=== PATIENT | male | born 1955 | race Caucasian/White ===

== ENCOUNTER 2016-12-03 21:27 | Emergency (ER) | payer SELFPAY ==
[~2016-12-03] VITALS: Ht 180.3 cm; Wt 59.9 kg
[~2016-12-03 21:27] MED LIST: ACHD5005 PO; DCS100C PO; HYDR-34 PO; HYDR-3583 PO; HYDR1CAP2 PO; HYDROCODONE PO; IBUP-30 PO; MUPI1OIN5 NS; NAPR-243 PO; SULF1TAB23 PO; SULF1TAB38 PO
[2016-12-03] MEDS ORDERED: KETOROLAC 60 MG/2 ML VIAL IM ONE (23:30)
[2016-12-03] MEDS ORDERED: predniSONE 20 MG TAB PO ONE (23:30)
[2016-12-03] MEDS ORDERED: PRD10T PO (23:32)
--- NOTE | 2016-12-03 23:32 | ED General ---
General Chief Complaint: General Problems/Pain Stated Complaint: SWELLING/PAIN IN RT LEG Nursing Triage Note: Patient reports lower back pain with pain radiating down R leg x 4-5 days, patient reports R leg started to swell yesterday Nursing Sepsis Screen: No Definite Risk Source of Information: Patient Exam Limitations: No Limitations History of Present Illness Time Seen by Provider: 21:35 Initial Comments This patient is brought to the emergency room by his ex- with complaints of pain and swelling from the right buttock down to the foot for the past 4-5 days. He denies any known injury. The pain is significant enough that he is walking with a limp. He also has a small contusion on the right buttock but he cannot recall how this happened. 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 Patient has no history of DVT. He is a smoker but has had no recent procedures or long travels. Patient states the right leg is swollen but no significant swelling is noted by this provider. Allergies and Home Medications Allergies Coded Allergies: No Known Drug Allergies (Verified , 08/03/08) Home Medications Prednisone 10 Mg Tab, 10 MG PO DAILY, #4 Prescribed by: VICKI ACUNA on 12/03/16 1439 Constitutional: no symptoms reported EENTM: no symptoms reported Respiratory: no symptoms reported Cardiovascular: no symptoms reported Gastrointestinal: no symptoms reported Genitourinary: no symptoms reported Musculoskeletal: see HPI Skin: see HPI Psychiatric/Neurological: No Symptoms Reported Hematologic/Lymphatic: No Symptoms Reported Past Hffhpfg-Zlpgxi-Cqdrum Hx Patient Social History Alcohol Use: Denies Use Recreational Drug Use: No Smoking Status: Current Everyday Smoker Type Used: Cigarettes Recent Foreign Travel: No Contact w/Someone Who Travel: No Recent Infectious Disease Expo: No Recent Hopitalizations: No Immunizations Up To Date Tetanus Booster (TDap): Unknown PED Vaccines UTD: No Surgeries HX Surgeries: Yes (hernia repairx4, finger surgery) Respiratory Hx Respiratory Disorders: Yes (tobaccoism) Cardiovascular Hx Cardiac Disorders: No Neurological Hx Neurological Disorders: No Reproductive System Hx Reproductive Disorders: No Sexually Transmitted Disease: No HIV/AIDS: No Genitourinary Hx Genitourinary Disorders: No Gastrointestinal Hx Gastrointestinal Disorders: Yes (HERNIA PROBLEMS. 4 SURGERIES ON HERNIA) Musculoskeletal Hx Musculoskeletal Disorders: No Endocrine Hx Endocrine Disorders: No HEENT HX ENT Disorders: Yes Loss of Vision: Left Hearing Impairment: Denies Cancer Hx Cancer: No Psychosocial Hx Psychiatric Problems: No Integumentary HX Skin/Integumentary Disorder: No Blood Transfusions Hx Blood Disorders: No Adverse Reaction to a Blood Tr: No Family Medical History Family Medial History: Cancer 03 MOTHER Family history: Breast disease 03 MOTHER Myocardial infarction 03 FATHER Physical Exam Vital Signs Vital Sign - Last 12Hours 12/03/16 21:33 Temp 98.3 Pulse 73 Resp 18 B/P (MAP) 133/100 Pulse Ox 94 Capillary Refill : Less Than 3 Seconds General Appearance: WD/WN, Mild Distress, Thin HEENT: PERRL/EOMI, Normal ENT Inspection Respiratory: Normal Breath Sounds, No Respiratory Distress Back: Normal Inspection Extremity: No Pedal Edema, Other (mild tenderness in the musculature throughout the right lower extremity. Pain with external rotation of the right hip. Tenderness over the contusion on the right buttock and over the sacrum.) Neurologic/Psychiatric: Alert, Oriented x3, No Motor/Sensory Deficits, Normal Mood/Affect, court recorder II-XII Norm as Tested Skin: Normal Color, Ecchymosis Progress/Results/Core Measures Results/Orders Lab Results Laboratory Tests Test 12/03/16 22:24 Range/Units D-Dimer 0.27 0.00-0.49 UG/ML My Orders Orders - VICKI RÍOS MD Fibrin Degradation Products (12/03/16 21:42) Ct Pelvis Wo (12/03/16 21:42) Femur, Right, 2 Views (12/03/16 23:03) Tibia/Fibula, Right, 2 Views (12/03/16 23:03) Ketorolac Injection (Toradol Injection) (12/03/16 23:30) Prednisone Tablet (Deltasone Tablet) (12/03/16 23:30) Medications Given in ED Current Medications Medications Dose Ordered Sig/Iliana Route Start Time Stop Time Status Last Admin Dose Admin Ketorolac Tromethamine 60 mg ONCE ONCE IM 12/03/16 23:30 12/03/16 23:31 DC 12/03/16 23:34 60 MG Prednisone 20 mg ONCE ONCE PO 12/03/16 23:30 12/03/16 23:31 DC 12/03/16 23:34 20 MG Vital Signs/I&O Vital Sign - Last 12Hours 12/03/16 12/03/16 21:33 23:49 Temp 98.3 98.3 Pulse 73 73 Resp 18 18 B/P (MAP) 133/100 Pulse Ox 94 94 Blood Pressure Mean: 111 Progress Note : Progress Note CT of the pelvis showed no evidence of acute injury. X-rays of the right femur and tib-fib followed. No evidence of injury was identified there either. D- dimer was negative, effectively ruling out DVT. I suspect patient had some type of injury he forgot about resulting in the contusion on the right buttock. He may also have some degree of radiculopathy based on the lumbar spine findings on CT. Patient's pain was treated with Toradol injection and prednisone. Diagnostic Imaging Diagonstic Imaging: CT Plain Films/CT/US/NM/MRI: other Comments CT of the pelvis viewed by me and Stat Rad report reviewed. Neuroforaminal stenosis and spondylolisthesis was noted with no acute injury to the pelvis identified. Diagonstic Imaging: Xray Plain Films/CT/US/NM/MRI: femur (and tib-fib) Comments X-rays of the right femur and tib-fib viewed by me. Report not yet available. No acute injuries identified. Departure Impression Impression: Primary Impression: Right leg pain Additional Impressions: Contusion, buttock Qualified Codes: S30.0XXA - Contusion of lower back and pelvis, initial encounter Neuroforaminal stenosis of lumbar spine Spondylolisthesis at L5-S1 level Disposition: 01 HOME, SELF-CARE Condition: Improved Departure-Patient Inst. Decision time for Depature: 23:20 Referrals: NO,LOCAL PHYSICIAN (PCP/Family) Primary Care Physician Patient Instructions: Contusion (DC) Add. Discharge Instructions: You may use ibuprofen up to 600 mg every 6 hours as needed for pain. Add Tylenol (acetaminophen) disease up to 1000 mg every 6 hours as needed for additional pain relief. Follow-up with your primary care provider within the next week. Return to care if symptoms worsen. Complete the prednisone as prescribed to help with inflammation. Avoid strenuous activity until pain improves. \All discharge instructions reviewed with patient and/or family. Voiced understanding. Scripts Prednisone (Prednisone) 10 Mg Tab 10 MG PO DAILY, #4 TAB Prov: VICKI RÍOS MD 12/03/16 VICKI RÍOS MD Dec 03, 2016 23:32
[2016-12-03 23:49] VITALS: BP 128/84
--- NOTE | 2016-12-04 07:08 | Diagnostic Imaging Report ---
PROCEDURE: CT pelvis without contrast. TECHNIQUE: Multiple contiguous axial images were obtained through the pelvis without the use of intravenous contrast. Sagittal and coronal reformations were performed. INDICATION: Pain over right sacrum, buttocks, contusion on skin. No reported injury. Pain with rotation. COMPARISON STUDIES: CT abdomen and pelvis from 06/26/14. FINDINGS: On the most superior slice, there is a small calculi in the right kidney. Arteriosclerosis is present. Bilateral pars defects are present at L5 with grade 1 anterolisthesis of L5-S1. Moderate to severe foraminal stenosis present at this level. No free fluid is present. Urinary bladder appears normal. Postoperative changes consistent with inguinal hernia repair present. In the gluteal region there is a small area of increased density in subcutaneous fat consistent with some bruising. IMPRESSION: 1. There is some bruising in the subcutaneous fat in the gluteal region. 2. No evidence of a fracture 3. Bilateral spondylolysis of L5 with anterolisthesis of L5 on S1 and foraminal stenosis. 3. Right renal lithiasis. Findings agree with the [facility] report. Dictated by: Dictated on workstation # [id number]
--- NOTE | 2016-12-04 07:24 | Diagnostic Imaging Report ---
INDICATION: Swelling in the right lower leg for 4=5 days. COMPARISON STUDIES: None FINDINGS: Frontal and lateral views of the right tibia and fibula demonstrate normal ossification. No fracture, dislocation or foreign body is present. IMPRESSION: Negative right tibia and fibula. Dictated by: Dictated on workstation # [id number]
--- NOTE | 2016-12-04 07:25 | Diagnostic Imaging Report ---
INDICATION: Swelling in lower legs for 4-5 days. COMPARISON STUDY: None FINDINGS: Two views of the right femur demonstrate no evidence of a fracture or dislocation. Mesh is seen within the right lower abdomen. IMPRESSION: Negative right femur. Dictated by: Dictated on workstation # [id number]
--- OUTSIDE RECORDS SUMMARY | 2016-12-07 14:30 | XMS REPORT | Continuity of Care Document ---
Author Author [facility] Address Unknown Phone Unavailable Allergies Active Description Code Type Severity Reaction Onset Reported/Identified Relationship to Patient Clinical Status Yes No Known Drug Allergies [id number] Drug Allergy Unknown N/ A 08/03/2008 Medications Problems Date Dx Coded Attending Type Code Diagnosis Diagnosed By 08/31/2010 Ot 550.92 08/31/2010 Ot 789.09 09/09/2010 Ot 214.4 09/09/2010 Ot 550.92 09/04/2011 Ot 550.90 UNILAT INGUINAL HERNIA 12/09/2011 Ot 305.1 TOBACCO USE DISORDER 12/09/2011 Ot 686.9 LOCAL SKIN INFECTION NOS 09/20/2012 Ot 789.04 ABDOMINAL PAIN, LEFT LOWER QUADRANT 11/18/2012 789.09 ABDOMINAL PAIN OTHER SPECIFIED SITE 11/18/2012 PATRICIA LAIRD DO 789.09 ABDOMINAL PAIN OTHER SPECIFIED SITE 11/18/2012 JORDYHOLDEN HAIR APRNNDA S 789.09 ABDOMINAL PAIN OTHER SPECIFIED SITE 11/18/2012 HENRY COVARRUBIAS MD 789.09 ABDOMINAL PAIN OTHER SPECIFIED SITE 11/18/2012 KIM SAMUEL MD 789.09 ABDOMINAL PAIN OTHER SPECIFIED SITE 11/18/2012 HOLDEN SPENCE APRNNDA S 789.09 ABDOMINAL PAIN OTHER SPECIFIED SITE 11/18/2012 HOLDEN SPENCE APRNNDA S 789.09 ABDOMINAL PAIN OTHER SPECIFIED SITE 11/18/2012 PATRICIA LAIRD DO K 789.09 ABDOMINAL PAIN OTHER SPECIFIED SITE 11/18/2012 SHARI SARMIENTO APRN 789.09 ABDOMINAL PAIN OTHER SPECIFIED SITE 11/18/2012 HOLDEN SPENCE APRNNDA S 789.09 ABDOMINAL PAIN OTHER SPECIFIED SITE 07/20/2013 LANE HAGER MD Ot 305.1 TOBACCO USE DISORDER 07/20/2013 LANE HAGER MD Ot 530.11 REFLUX ESOPHAGITIS 07/20/2013 LANE HAGER MD Ot 531.90 STOMACH ULCER NOS 07/20/2013 ALLEY PLASCENCIA, LANE Melendez Ot 535.50 UNSP GASTRITIS GASTRODUODENITIS W/O ME 07/20/2013 AL[address] PLASCENCIA, L[address] Melendez Ot 789.09 ABDOMINAL PAIN, OTHER SPECIFIED SITE 07/20/2013 AL[address] PL[address]IA, L[address] Melendez Ot V15.81 HX OF PAST NONCOMPLIANCE 07/25/2013 ELAINE SPENCE APRN S 535.50 GASTRITIS UNSPEC 07/25/2013 ELAINE SPENCE APRN S 789.04 ABDOMINAL PAIN LEFT LOWER QUADRANT 07/25/2013 ELAINE SPENCE APRN S V70.0 EXAM - ROUTINE H&P 07/25/2013 HENRY COVARRUBIAS MD 535.50 GASTRITIS UNSPEC 07/25/2013 HENRY COVARRUBIAS MD 789.04 ABDOMINAL PAIN LEFT LOWER QUADRANT 07/25/2013 HENRY COVARRUBIAS MD V70.0 EXAM - ROUTINE H&P 07/25/2013 KIM SAMUEL MD 535.50 GASTRITIS UNSPEC 07/25/2013 KIM SAMUEL MD 789.04 ABDOMINAL PAIN LEFT LOWER QUADRANT 07/25/2013 KIM SAMUEL MD V70.0 EXAM - ROUTINE H&P 07/25/2013 ELAINE SPENCE APRN S 535.50 GASTRITIS UNSPEC 07/25/2013 ELAINE SPENCE APRN S 789.04 ABDOMINAL PAIN LEFT LOWER QUADRANT 07/25/2013 ELAINE SPENCE APRN S V70.0 EXAM - ROUTINE H&P 07/25/2013 ELAINE SEPNCE APRN S 535.50 GASTRITIS UNSPEC 07/25/2013 ELAINE SPENCE APRN S 789.04 ABDOMINAL PAIN LEFT LOWER QUADRANT 07/25/2013 ELAINE SPENCE APRN S V70.0 EXAM - ROUTINE H&P 07/25/2013 PATRICIA LAIRD DO 535.50 GASTRITIS UNSPEC 07/25/2013 PATRICIA LAIRD DO 789.04 ABDOMINAL PAIN LEFT LOWER QUADRANT 07/25/2013 PATRICIA LAIRD DO V70.0 EXAM - ROUTINE H&P 07/25/2013 SHARI SARMIENTO APRN 535.50 GASTRITIS UNSPEC 07/25/2013 SHARI SARMIENTO APRN 789.04 ABDOMINAL PAIN LEFT LOWER QUADRANT 07/25/2013 SHARI SARMIENTO APRN V70.0 EXAM - ROUTINE H&P 07/25/2013 ELAINE SPENCE APRN 535.50 GASTRITIS UNSPEC 07/25/2013 ELAINE SPENCE APRN S 789.04 ABDOMINAL PAIN LEFT LOWER QUADRANT 07/25/2013 ELAINE SPENCE APRN V70.0 EXAM - ROUTINE H&P 11/27/2013 ELAINE SPENCE APRN S 719.42 PAIN- ELBOW 11/27/2013 ELAINE SPENCE APRN S 719.46 PAIN KNEE 11/27/2013 LAIRD DO, PATRICIA K 719.42 PAIN- ELBOW 11/27/2013 LAIRD DO, PATRICIA K 719.46 PAIN KNEE 11/27/2013 SHARI SARMIENTO APRN 719.42 PAIN- ELBOW 11/27/2013 SHARI SARMIENTO APRN 719.46 PAIN KNEE 11/27/2013 ELAINE SPENCE APRN S 719.42 PAIN- ELBOW 11/27/2013 ELAINE SPENCE APRN S 719.46 PAIN KNEE 06/21/2014 Ot 550.90 06/21/2014 Ot V72.63 06/21/2014 Ot 789.09 06/21/2014 Ot V72.63 06/21/2014 Ot V74.8 06/25/2014 Ot 550.90 06/25/2014 Ot V72.63 06/25/2014 Ot 789.09 06/25/2014 Ot V72.63 06/25/2014 Ot V74.8 12/03/2016 Ot 789.09 ABDOMINAL PAIN, OTHER SPECIFIED SITE 12/03/2016 Ot V72.63 PRE-PROCEDURAL LABORATORY EXAMINATION 12/03/2016 Ot V74.8 SCREEN-BACTERIAL DIS NEC 12/03/2016 ELAINE SPENCE Ot 789.04 ABDOMINAL PAIN, LEFT LOWER QUADRANT 12/03/2016 ELAINE SPENCE Ot V45.89 POSTSURGICAL STATES NEC Procedures Code Description Performed By Performed On 86.04 OTHER SKIN SUBQ I D 12/07/2011 86.59 CLOSURE SKIN SUBCUTANEOUS NEC 12/09/2011 Marty Farris 11/23/2012 63437 ROUTINE VENIPUNCTURE 11/27/2013 27408 XRAY KNEE LEFT 3 VIEWS 11/27/2013 05767 CBC 11/28/2013 56268 URIC ACID 2013 JOINT INJECTION- LARGE JOINT (SPECIFY MEDCIN DESCRIPTION) 12/21/2013 JOINT INJECTION- LARGE JOINT (SPECIFY MEDCIN DESCRIPTION) 03/22/2014 J1040 DEPO MEDROL 80 MG INJ 03/22/2014 Results Test Result Range Fibrin D-dimer FEU measurement in platelet poor plasma (mass/volume) - 22:24 Fibrin D-dimer FEU measurement in platelet poor plasma (mass/volume) 0.27 ug/mL 0.00-0.49 Encounters ACCT No. Visit Date/Time Discharge Status Pt. Type Provider Facility Loc./Unit Complaint [id number] 06/13/2014 10:30:00 06/13/2014 23: 59:59 CLS Outpatient ELAINE SPENCE APRN [id number] 03/22/2014 13:01:00 03/22/2014 23: 59:59 CLS Outpatient SHARI SARMIENTO APRN [id number] 12/21/2013 12:24:00 12/21/2013 23: 59:59 CLS Outpatient PATRICIA LAIRD DO [id number] 11/27/2013 15:34:00 11/27/2013 23: 59:59 CLS Outpatient ELAINE SPENCE APRN [id number] 09/25/2013 14:53:00 09/25/2013 23: 59:59 CLS Outpatient KIM SAMUEL MD [id number] 09/18/2013 00:00:00 09/18/2013 23: 59:59 CLS Outpatient ELAINE SPENCE APRN [id number] 08/16/2013 15:30:00 08/16/2013 23: 59:59 CLS Outpatient HENRY COVARRUBIAS MD [id number] 07/25/2013 14:27:00 07/25/2013 23: 59:59 CLS Outpatient ELAINE SPENCE APRN [id number] 11/21/2012 14:54:00 11/21/2012 23: 59:59 CLS Outpatient PATRICIA LAIRD DO [id number] 11/18/2012 10:57:00 Document Registration
== END 2016-12-03 23:49 | disposition home or self-care (01) ==
LOC: EDUNIT# 21:27 → ER 21:29
DX: S30.0XXA Contusion of lower back and pelvis, initial encounter (principal); M48.06 Spinal stenosis, lumbar region; M43.17 Spondylolisthesis, lumbosacral region; M79.604 Pain in right leg; F17.210 Nicotine dependence, cigarettes, uncomplicated; X58.XXXA Exposure to other specified factors, initial encounter
CPT/HCPCS: 36415; 72192; 73552; 73590; 85379; 96372; 99283

== ENCOUNTER 2018-04-10 20:00 | Emergency (ER) | payer SELFPAY ==
[~2018-04-10] VITALS: Ht 175.3 cm; Wt 61.2 kg
[~2018-04-10 20:00] MED LIST changes: +PRD10T PO
[2018-04-10] MEDS ORDERED: CHLO473M MM (20:25)
--- NOTE | 2018-04-10 20:25 | ED EENT ---
History of Present Illness General Stated Complaint: SORE IN MOUTH Source: patient Exam Limitations: no limitations History of Present Illness Date Seen by Provider: Apr 10, 2018 Time Seen by Provider: 20:22 Initial Comments To ER with reports of a sore in his mouth. This began Wednesday while he was eating. He is edentulous. He states that his mouth "split open" and that he " put it back together with his tongue". Refers to a "zipper" in his mouth. Timing/Duration: abrupt Severity: moderate Location: mouth Associated Symptoms: denies symptoms Allergies and Home Medications Allergies Coded Allergies: No Known Drug Allergies (Verified , 08/03/08) Home Medications Chlorhexidine Gluconate 473 Ml Mouthwash, 30 ML MM BID Prescribed by: OLIVIA GORDON on 04/10/182024 Prednisone 10 Mg Tab, 10 MG PO DAILY Prescribed by: VICKI ACUNA on 12/03/16 3332 Patient Home Medication List Home Medication List Reviewed: Yes Review of Systems Review of Systems Constitutional: see HPI Eyes: No Symptoms Reported Ears: No Symptoms Reported Nose: no symptoms reported Mouth: see HPI (he is edentulous, there is an area of slight erythema maceration to the gingiva overlying where tooth #9 and 10 used to reside.) Musculoskeletal: no symptoms reported Skin: no symptoms reported Neurological: No Symptoms Reported, See HPI Hematologic/Lymphatic: No Symptoms Reported Immunological/Allergic: no symptoms reported Past Amjgrld-Mknmuq-Nkodam Hx Patient Social History Type Used: Cigarettes Recent Foreign Travel: No Contact w/Someone Who Travel: No Recent Hopitalizations: No Immunizations Up To Date Tetanus Booster (TDap): Unknown PED Vaccines UTD: No Past Medical History Surgeries: Yes (hernia repairx4, finger surgery) Respiratory: No Cardiac: No Neurological: No Reproductive Disorders: No Sexually Transmitted Disease: No HIV/AIDS: No Gastrointestinal: Yes (HERNIA PROBLEMS. 4 SURGERIES ON HERNIA) Musculoskeletal: No Endocrine: No Loss of Vision: Left Hearing Impairment: Denies Cancer: No Psychosocial: No Integumentary: No Blood Disorders: No Adverse Reaction/Blood Tranf: No Family Medical History Cancer 03 MOTHER Family history: Breast disease 03 MOTHER Myocardial infarction 03 FATHER Physical Exam Vital Signs Vital Signs - First Documented 04/10/18 20:15 Temp 97.6 Pulse 81 Resp 16 B/P (MAP) 154/110 (125) Pulse Ox 99 O2 Delivery Room Air Height, Weight, BMI Height: 5'11.00" Weight: 132lbs. 2.0oz. 59.482198oh; 18.41 BMI Method:Stated General Appearance: WD/WN, no apparent distress Eyes: bilateral eye normal inspection, bilateral eye PERRL, bilateral eye EOMI Nose: normal inspection Mouth/Throat: No mandibular swelling, No maxillary swelling, No pharynx swelling, No tongue swollen, No tonsillar swelling, No trismus; other (he is edentulous, there is an area of slight erythema maceration to the gingiva overlying where tooth #9 and 10 used to reside.) Neck: non-tender, full range of motion Respiratory: no respiratory distress, no accessory muscle use Gastrointestinal: normal bowel sounds, non tender Neurologic/Psychiatric: alert, normal mood/affect, oriented x 3 Progress/Results/Core Measures Results/Orders My Orders Orders - OLIVIA GORDON APRN Lidocaine 2% Viscous 15 Ml (Xylocaine Vi (04/10/18 20:30) Antacid Suspension (Mylanta Suspension (04/10/18 20:30) Vital Signs/I&O 04/10/18 20:15 Temp 97.6 Pulse 81 Resp 16 B/P (MAP) 154/110 (125) Pulse Ox 99 O2 Delivery Room Air Departure Communication (Admissions) Unclear if the area he "put back with his tongue" was possible sloughed skin from blister? Impression Primary Impression: Stomatitis and mucositis, unspecified Disposition: 01 HOME, SELF-CARE Condition: Stable Departure-Patient Inst. Decision time for Depature: 20:23 Referrals: NO,LOCAL PHYSICIAN (PCP/Family) Primary Care Physician Patient Instructions: Mouth Sores Add. Discharge Instructions: 1. Use the mouthwash as prescribed 2. Apply any topical numbing medication as needed for control of pain. Scripts Chlorhexidine Gluconate (Chlorhexidine Gluconate) 473 Ml Mouthwash 30 ML MM BID, #473 ML Prov: OLIVIA GORDON APRN 04/10/18 Work/School Note: Local [employer]ing OLIVIA GORDON APRN Apr 10, 2018 20:25
[2018-04-10] MEDS ORDERED: LIDOCAINE 2% VISCOUS 15 ML UDC MM ONE (20:30)
[2018-04-10] MEDS ORDERED: ANTACID SUSP 30 ML UDC (MYLANTA) PO ONE (20:30)
[2018-04-10 20:44] VITALS: BP 161/99
== END 2018-04-10 20:40 | disposition home or self-care (01) ==
LOC: EDUNIT# 20:00 → ER 20:01
DX: K12.30 Oral mucositis (ulcerative), unspecified (principal); K12.1 Other forms of stomatitis; Z98.890 Other specified postprocedural states; Z80.3 Family history of malignant neoplasm of breast
CPT/HCPCS: 99283

== ENCOUNTER 2018-06-11 04:45 | Emergency (ER) | payer SELFPAY ==
[~2018-06-11] VITALS: Ht 167.6 cm; Wt 61.2 kg
[~2018-06-11 04:45] MED LIST changes: +CHLO473M MM
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
[2018-06-11] MEDS ORDERED: FLUT9.9S NS (05:14)
[2018-06-11] MEDS ORDERED: SALINE NASAL SPRAY (OCEAN) 45 ML BTL ONE (05:15)
[2018-06-11 05:21] VITALS: BP 134/81
== END 2018-06-11 05:20 | disposition home or self-care (01) ==
LOC: EDUNIT# 04:45 → ER 04:47
DX: M26.623 Arthralgia of bilateral temporomandibular joint (principal); H65.93 Unspecified nonsuppurative otitis media, bilateral; F17.210 Nicotine dependence, cigarettes, uncomplicated; Z79.52 Long term (current) use of systemic steroids; Z98.890 Other specified postprocedural states; Z82.49 Family history of ischemic heart disease and other diseases of the circulatory system
CPT/HCPCS: 99282

== ENCOUNTER 2020-09-29 14:53 | Emergency (ER) | payer SELFPAY ==
[~2020-09-29] VITALS: Ht 177 cm; Wt 61.0 kg
[~2020-09-29 14:53] MED LIST changes: -CHLO473M MM; +FLUT9.9S NS; +NFCHLORHGL MM
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
[2020-09-29] MEDS ORDERED: CEPHALEXIN 250 MG (KEFLEX) CAP PO ONE (15:15)
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
[2020-09-29] MEDS ORDERED: CEPH500T PO (16:16)
[2020-09-29 16:40] VITALS: BP 158/92
== END 2020-09-29 16:43 | disposition home or self-care (01) ==
LOC: EDUNIT# 14:53 → ER 14:54
DX: S61.210A Laceration without foreign body of right index finger without damage to nail, initial encounter (principal); F17.210 Nicotine dependence, cigarettes, uncomplicated; Z79.52 Long term (current) use of systemic steroids; W23.0XXA Caught, crushed, jammed, or pinched between moving objects, initial encounter; Y92.59 Other trade areas as the place of occurrence of the external cause; Y99.0 Civilian activity done for income or pay
CPT/HCPCS: 64450; 73140

== ENCOUNTER 2020-10-01 07:54 | Emergency (ER) | payer SELFPAY ==
[~2020-10-01] VITALS: Ht 180 cm; Wt 135.0 kg
[~2020-10-01 07:54] MED LIST changes: +CEPH500T PO
[2020-10-01 08:00] VITALS: BP 170/104
--- NOTE | 2020-10-01 08:17 | ED Integumentary General ---
General Stated Complaint: L FINGER CHECK History of Present Illness Date Seen by Provider: Oct 01, 2020 Time Seen by Provider: 08:05 Initial Comments Patient is a 64-year-old male who is right-hand dominant who presents by private vehicle this morning with a chief complaint of wound reevaluation. Patient accidentally smashed his left index finger between some bricks 2 days ago. Patient had local wound care with some stitches placed per Dr. Morris. Patient was advised to come back in for a wound check today. He denies having significant pain. He has not remove the bandage since the time it was seen and treated here in the emergency room. He states that he is taking his antibiotics as directed. He has not made follow-up yet with a hand surgeon. No other complaints of illness or injury. All other review of systems reviewed and negative except as stated above. Timing/Duration: other (2 days ago) Severity: mild Possible Cause: other (Crush injury) Associated Symptoms: denies symptoms Allergies and Home Medications Allergies Coded Allergies: No Known Drug Allergies (Verified , 08/03/08) Home Medications Cephalexin 500 Mg Tablet, 500 MG PO QID Prescribed by: HUGO MORRIS on 09/29/20 1616 Fluticasone Propionate 9.9 Ml [place].susp, 1 SPRAY NS DAILY 1 SPRAY EACH NARE DAILY Prescribed by: HUGO MORRIS on 06/11/18 0514 Patient Home Medication List Home Medication List Reviewed: Yes Review of Systems Review of Systems Constitutional: see HPI Respiratory: no symptoms reported Cardiovascular: no symptoms reported Gastrointestinal: no symptoms reported Genitourinary: no symptoms reported Musculoskeletal: other (Left index finger discomfort) Skin: other (Sutures left index finger) All Other Systems Reviewed Negative Unless Noted: Yes Past Vamxewk-Cuipin-Kbfwsg Hx Patient Social History Alcohol Beverage of Choice: Beer Type Used: Cigarettes 2nd Hand Smoke Exposure: Yes Recent Hopitalizations: No Immunizations Up To Date Tetanus Booster (TDap): Less than 5yrs PED Vaccines UTD: No Seasonal Allergies Seasonal Allergies: No Past Medical History Surgeries: Yes (hernia repairx4, finger surgery) Respiratory: Yes (tobaccoism) Cardiac: No Neurological: No Reproductive Disorders: No Sexually Transmitted Disease: No HIV/AIDS: No Genitourinary: No Gastrointestinal: Yes (hernia) Musculoskeletal: No Endocrine: No HEENT: No Loss of Vision: Left Hearing Impairment: Denies Cancer: No Psychosocial: No Integumentary: No Blood Disorders: No Adverse Reaction/Blood Tranf: No Family Medical History Cancer 03 MOTHER Family history: Breast disease 03 MOTHER Myocardial infarction 03 FATHER Physical Exam Vital Signs Capillary Refill : General Appearance: WD/WN, no apparent distress Cardiovascular: regular rate, rhythm Respiratory: no respiratory distress, no accessory muscle use Extremities: other (Left index finger swollen with some decreased range of motion at the distal and interphalangeal joints. Wound over the dorsum of the finger looks good. Skin appears viable. Sutures are intact. No drainage or erythema around the wound.) Neurologic/Psychiatric: alert, normal mood/affect, oriented x 3 Skin: normal color, warm/dry Departure Impression Primary Impression: Encounter for wound re-check Disposition: 01 HOME, SELF-CARE Condition: Stable Departure-Patient Inst. Decision time for Depature: 08:16 Referrals: YANNICK ALVARADO DO NO,LOCAL PHYSICIAN (PCP) Primary Care Physician Patient Instructions: Wound Care Add. Discharge Instructions: Keep the wound clean dry and covered for the next several days. You can place a little antibacterial ointment on the stitches when you redress it daily. Please call and follow-up with a hand surgeon as referred. Come back to the emergency room if you have any fevers, increasing pain in the finger, redness, drainage, streaking up the hand or any other emergent concerning symptoms. SIMA MELLO MD Oct 01, 2020 08:17
== END 2020-10-01 08:23 | disposition home or self-care (01) ==
LOC: EDUNIT# 07:54 → ER 07:56
DX: Z48.01 Encounter for change or removal of surgical wound dressing (principal); H54.7 Unspecified visual loss; F17.210 Nicotine dependence, cigarettes, uncomplicated
CPT/HCPCS: 99281

== ENCOUNTER → 2021-11-18 | Outpatient (CLI) | payer MEDICARE ==
--- NOTE | 2021-11-18 17:10 | Diagnostic Imaging Report ---
CLINICAL INDICATION: Patient has cervical spine pain x1-1/2 months, now with no known injury. EXAM: MRI of the cervical spine without contrast. Sequences include sagittal T2, sagittal T1, sagittal T2 fat-sat, and axial T2. COMPARISON: None. FINDINGS: There are Modic type I degenerative signal changes involving the C3-C4 level. Limited visualization of the posterior fossa is unremarkable. There is tight central canal stenosis at the C3 through C6 level, which causes significant deformity of the cervical cord at the C3 through C6 level. There appears to be increased T2 signal involving the cord seen at the C4 level and C5 level, which may be related to myelomalacia or cord contusion. There are hypertrophic spurs throughout the cervical spine and facet arthropathy. There is no significant paraspinal soft tissue abnormality. C1-C2: There is no significant central canal stenosis. C2-C3: There is no significant central canal or neural foramen narrowing. There is bilateral facet arthropathy. C3-C4: There is grade 1 anterolisthesis of C3 on C4. There is a diffuse disc bulge with mild loss of disc space height. There is severe left facet arthropathy and mild right facet arthropathy. There is severe central canal stenosis with complete effacement of the thecal sac. There is severe bilateral neural foramen narrowing. C4-C5: There is a diffuse disc bulge with lqon-qo-fytianzf loss of disc space height. There are disc spurs posteriorly and bilateral uncinate spurs and ligamentum flavum buckling. There is bilateral facet arthropathy. There is severe central canal stenosis and severe bilateral neural foramen narrowing with the right side worse than the left. C5-C6: There is a diffuse disc bulge with mild loss of disc space height. There is moderate left facet arthropathy/hypertrophy and mild right facet arthropathy. There is severe central canal stenosis. There is mild left neural foramen narrowing and severe right neural foramen narrowing. C6-C7: There is a diffuse disc bulge with moderate loss of disc space height. There is iqxnwcrq-ex-zvtzng central canal stenosis. There is moderate bilateral neural foramen narrowing. C7-T1: There is no significant central canal or neural foramen narrowing. IMPRESSION: 1: There is severe multilevel cervical spine degenerative disc disease, which is worst at the C3 through C6 levels. This is described above. 2: There is cord deformity due to encroachment from degenerative disease involving the C3 through C6 levels with areas of increased T2 signal, which may be related to myelomalacia and/or cord contusion. Dictated by: Dictated on workstation # [id number]
== END ==
LOC: RAD 13:40
PROVIDERS: ATTEND Internal Medicine
DX: M50.10 Cervical disc disorder with radiculopathy, unspecified cervical region (principal); M48.02 Spinal stenosis, cervical region; M46.02 Spinal enthesopathy, cervical region; M43.12 Spondylolisthesis, cervical region; M50.20 Other cervical disc displacement, unspecified cervical region
CPT/HCPCS: 72141

== ENCOUNTER 2022-03-13 09:22 | Outpatient (CLI) | payer MEDICARE ==
[~2022-03-13] VITALS: Ht 177.8 cm; Wt 56.2 kg
[2022-03-13] MEDS ORDERED: LISI10TA25 PO (12:40)
== END 2022-03-13 13:23 | disposition home or self-care (01) ==
LOC: PREOP 09:22
PROVIDERS: ATTEND Surgery
DX: Z01.818 Encounter for other preprocedural examination (principal)

== ENCOUNTER 2022-03-19 07:29 | Day surgery (SDC) | payer MEDICARE, MEDICAID ==
[2022-03-19] VITALS (7 sets, daily range): BP systolic 84–126; BP diastolic 52–83
[~2022-03-19] VITALS: Ht 177.8 cm; Wt 56.2 kg
[~2022-03-19 07:29] MED LIST changes: +LISI10TA25 PO
[2022-03-19] MEDS ORDERED: LACTATED RINGERS 1,000 ML IV STA (07:39)
[2022-03-19] MEDS ORDERED: HURRICAINE EXT TUBE (BENZOCAINE) XX PRN (07:45)
--- NOTE | 2022-03-19 09:23 | Progress Note-Pre Operative ---
Pre-Operative Progress Note Date of Available H&P: Mar 12, 2022 Date H&P Reviewed: Mar 19, 2022 Time H&P Reviewed: 09:20 History & Physical: H&P Reviewed, Patient Examed, No changes noted Pre-Operative Diagnosis: Hx of Gastric Ulcer, Screening colonoscopy CARLOTTA PEREIRA DO Mar 19, 2022 09:23
[2022-03-19] MEDS ORDERED: PROPOFOL INJECTION 50 ML IV ONE (09:25)
--- NOTE | 2022-03-19 10:07 | Progress Note-Post Operative ---
Post-Operative Progess Note Surgeon (s)/Underwriter (s) Surgeon CARLOTTA PEREIRA DO Underwriter: Sebastian Colmenares, ALINEII Pre-Operative Diagnosis Hx of Gastric Ulcer, Screening colonoscopy Post-Operative Diagnosis Gastritis Hiatal Hernia Polyps Diverticual int hemorrhoids Procedure & Operative Findings Date of Procedure 03/19/22 Procedure Performed/Findings EGD with bx Colonoscopy with snare Colonoscopy with hot bx PROCEDURE NOTE: After informed consent was obtained, the patient was brought to the endoscopy suite, placed in bed in left lateral decubitus position. He was administered IV sedation by the SAUSAGE TIER who then monitored vitals the entire time, heart rate, blood pressure and pulse ox and the scope was inserted down the mouth through the esophagus into the stomach. On the way down, noted some mild esophagitis, took a picture, pushed into the stomach, pushed past the antrum into the duodenum. Duodenum looked good. Pulled back and did a biopsy of antrum, then retroflexed the scope, saw hiatal hernia, took a picture of this and then pulled the scope into the GE junction, took another picture of the hiatal hernia and then did a biopsy of the GE junction. Pushed the scope back into the stomach, suctioned all the air out of the stomach. At this point pulled the scope up the esophagus and out the mouth. Switched camera, switched gloves, went down below and started the colonoscopy. Pushed all the way into about 110 cm to get all the way to cecum, took a picture of the appendiceal orifice, noted the ileocecal valve and then slowly withdrew the scope. In the ascending colon saw a small flat polyp and elected to do a hot biopsy to remove it. Insufflating to look circumferentially at the mas starting in the cecum, up the ascending colon to the hepatic flexure; where I found anothe large flat polyp, took two biopsies with hot biopsy. Then down the transverse colon where I found another polyp, also did a biopsy. Continued to the splenic flexure, into the descending colon, and down into the sigmoid. Here I found multiple larger polyps that I elected to remove with the snare to get the entire poly. Finally into the rectum, where I found another large polyp which I also removed with snare and took a picture of three more next to it. I retroflexed in the rectal vault, saw some minimal internal hemorrhoids and took a picture of them. The patient tolerated the procedure and he recovered in the endoscopy suite. Recommended for repeat colonoscopy in 1 years Anesthesia Type IV sedation by SAUSAGE TIER Estimated Blood Loss Estimated blood loss (mL): scant Specimens/Packing Specimens Removed antral bx body of stomach bx GE jxn bx asc colon polyp hepatic flexure polyp transverse colon polyp sigmoid polyp rectal polyp CARLOTTA PEREIRA DO Mar 19, 2022 10:07
--- NOTE | 2022-03-19 10:08 | Endoscopy Discharge Instruct ---
Endo Procedure/Findings Findings 1.: Hiatal Hernia, Gastritis 2.: Polyp 3.: Diverticulosis 4.: Internal Hemorrhoids Discharge Instructions - Activity: You might feel a little sleepy until tomorrow. This is due to the medicine you received to relax you. Until tomorrow, you should: NOT drive a car, operate machinery or power tools. NOT drink any alcoholic beverages. NOT make any important decisions or sign importortant papers. Do not return to work until tomorrow, unless otherwise instructed. Resume previous activities tomorrow. Diet: Start by taking liquids. If you tolerate liquids, advance to solid food. 1.: EGD in 3 years 2.: Colonoscopy in 1 year Notify Physician - If you experience excessive bleeding, unusual abdominal pain, fever, or chest pain, contact your doctor immediately. CARLOTTA PEREIRA DO Mar 19, 2022 10:08
--- NOTE | 2022-03-19 11:48 | Anesthesia-General Post-Op ---
MAC Patient Condition Mental Status/LOC: Same as Preop Cardiovascular: Satisfactory Nausea/Vomiting: Absent Respiratory: Satisfactory Pain: Controlled Complications: Absent Post Op Complications Complications None Follow Up Care/Instructions Patient Instructions None needed. Anesthesiology Discharge Order Discharge Order Patient is doing well, no complaints, stable vital signs, no apparent adverse anesthesia problems. No complications reported per nursing. RONAL CARTER CRNA Mar 19, 2022 11:48
== END 2022-03-19 10:59 | disposition home or self-care (01) ==
LOC: ENDO 07:29
PROVIDERS: ATTEND Surgery
DX: Z12.11 Encounter for screening for malignant neoplasm of colon (principal); D12.2 Benign neoplasm of ascending colon; D12.3 Benign neoplasm of transverse colon; K57.30 Diverticulosis of large intestine without perforation or abscess without bleeding; K64.8 Other hemorrhoids; K44.9 Diaphragmatic hernia without obstruction or gangrene; K29.70 Gastritis, unspecified, without bleeding; K31.A11 Gastric intestinal metaplasia without dysplasia, involving the antrum; K31.89 Other diseases of stomach and duodenum; K21.00 Gastro-esophageal reflux disease with esophagitis, without bleeding; K63.5 Polyp of colon; F17.210 Nicotine dependence, cigarettes, uncomplicated; Z87.11 Personal history of peptic ulcer disease

== ENCOUNTER → 2022-08-25 | Outpatient (CLI) | payer MEDICARE, MEDICAID ==
--- NOTE | 2022-08-25 17:39 | Diagnostic Imaging Report ---
CLINICAL HISTORY: Neck pain. Stenosis. COMPARISON: 11/18/2021. TECHNIQUE: Two views of the cervical spine. FINDINGS: There is no acute fracture or dislocation of the cervical spine. No evidence of dynamic instability on flexion and extension views. ACDF changes are visualized from C3 to C6. No evidence of hardware complication. The prevertebral soft tissues are unremarkable. IMPRESSION: 1. No acute fracture or dislocation in the cervical spine. No evidence of dynamic instability. 2. ACDF changes from C3 to C6. No evidence of hardware complication. Dictated by: Dictated on workstation # [id number]
== END ==
LOC: RAD 13:32
PROVIDERS: ATTEND Neurological Surgery
DX: M47.12 Other spondylosis with myelopathy, cervical region (principal); M48.02 Spinal stenosis, cervical region
CPT/HCPCS: 72040

== ENCOUNTER 2023-04-14 08:52 | Outpatient (CLI) | payer MEDICARE, MEDICAID ==
[~2023-04-14] VITALS: Ht 177.8 cm; Wt 58.6 kg
== END 2023-04-14 11:55 | disposition home or self-care (01) ==
LOC: PREOP 08:52
PROVIDERS: ATTEND Surgery
DX: Z01.818 Encounter for other preprocedural examination (principal)

== ENCOUNTER 2023-05-03 09:52 | Day surgery (SDC) | payer MEDICARE, MEDICAID ==
[2023-05-03] VITALS (7 sets, daily range): BP systolic 86–131; BP diastolic 58–79
[~2023-05-03] VITALS: Ht 177.8 cm; Wt 58.6 kg
[2023-05-03] MEDS ORDERED: LACTATED RINGERS 1,000 ML 1,000 ML IV STA (10:05)
--- NOTE | 2023-05-03 10:13 | Progress Note-Pre Operative ---
Pre-Operative Progress Note Date of Available H&P: Apr 13, 2023 Date H&P Reviewed: May 03, 2023 Time H&P Reviewed: 10:10 History & Physical: H&P Reviewed, Patient Examed, No changes noted Pre-Operative Diagnosis: Hx of polyps, GERD CARLOTTA PEREIRA DO May 03, 2023 10:13
[2023-05-03] MEDS ORDERED: HURRICAINE EXT TUBE (BENZOCAINE) XX PRN (10:15)
[2023-05-03] MEDS ORDERED: MIDAZOLAM INJ 2 MG/2 ML VIAL ONE (11:14)
[2023-05-03] MEDS ORDERED: ATROPINE INJECTION 0.4 MG/ML SDV ONE (11:16)
--- NOTE | 2023-05-03 12:00 | Progress Note-Post Operative ---
Post-Operative Progess Note Surgeon (s)/Shoe Sewing Machine Operator And Tender (s) Surgeon CARLOTTA PEREIRA DO Shoe Sewing Machine Operator And Tender: none Pre-Operative Diagnosis Hx of polyps, GERD Post-Operative Diagnosis Gastritis Hiatal hernia Polyps diverticula int hemorrhoids Procedure & Operative Findings Date of Procedure 05/03/23 Procedure Performed/Findings EGD with biopsy Colonoscopy with snare polypectomy PROCEDURE NOTE: After informed consent was obtained, the patient was brought to the endoscopy suite, placed in bed in left lateral decubitus position. He was administered IV sedation by the ELIGIBILITY EXAMINER who then monitored vitals the entire time, heart rate, blood pressure and pulse ox and the scope was inserted down the mouth through the esophagus into the stomach. On the way down, noted some mild esophagitis, took a picture, pushed into the stomach, pushed past the antrum into the duodenum. Duodenum looked good. Pulled back and did a biopsy of antrum, then retroflexed the scope, saw hiatal hernia, took a picture of this and then pulled the scope into the GE junction, took another picture of the hiatal hernia and then did a biopsy of the GE junction. Pushed the scope back into the stomach, suctioned all the air out of the stomach. At this point pulled the scope up the esophagus and out the mouth. Switched camera, switched gloves, went down below and started the colonoscopy. Pushed all the way to about 130 cm and pushed into the cecum, took a picture of appendiceal orifice and noted the ileocecal valve. Then slowly withdrew the scope insufflating to look circumferentially at the mas starting in the cecum and up the ascending colon. I found a polyp here and removed it with the snare. Continued up to the hepatic flexure, then down the transverse colon to the splenic flexure and into the descending colon. I found two polyps here and removed them with the snare. Next, down into the sigmoid and then into the rectum. I found 5 polyps here and removed all of them with the snare. Lastly, into the rectal vault, retroflexed the scope and took a picture of the internal hemorrhoids. The patient tolerated the procedure and he recovered in the endoscopy suite. Recommended for repeat colonoscopy in 3 years Anesthesia Type IV sedation by ELIGIBILITY EXAMINER Estimated Blood Loss Estimated blood loss (mL): scant Specimens/Packing Specimens Removed antral bx GE jxn bx Asc colon polyp Desc colon polyp x2 Rectal polyp x 5 CARLOTTA PEREIRA DO May 03, 2023 12:00
--- NOTE | 2023-05-03 12:01 | Endoscopy Discharge Instruct ---
Endo Procedure/Findings Findings 1.: Hiatal Hernia, Gastritis 2.: Polyp 3.: Diverticulosis 4.: Internal Hemorrhoids Discharge Instructions - Activity: You might feel a little sleepy until tomorrow. This is due to the medicine you received to relax you. Until tomorrow, you should: NOT drive a car, operate machinery or power tools. NOT drink any alcoholic beverages. NOT make any important decisions or sign importortant papers. Do not return to work until tomorrow, unless otherwise instructed. Resume previous activities tomorrow. Diet: Start by taking liquids. If you tolerate liquids, advance to solid food. 1.: EGD in 3 years 2.: Colonscopy in 3 years Notify Physician - If you experience excessive bleeding, unusual abdominal pain, fever, or chest pain, contact your doctor immediately. Follow-Up: Other Follow up in my office in one week CARLOTTA PEREIRA DO May 03, 2023 12:01
--- NOTE | 2023-05-03 15:23 | Anesthesia-General Post-Op ---
MAC Patient Condition Mental Status/LOC: Same as Preop Cardiovascular: Satisfactory Nausea/Vomiting: Absent Respiratory: Satisfactory Pain: Controlled Complications: Absent Post Op Complications Complications None Follow Up Care/Instructions Patient Instructions None needed. Anesthesiology Discharge Order Discharge Order Patient is doing well, no complaints, stable vital signs, no apparent adverse anesthesia problems. No complications reported per nursing. SHARI VALENCIA AUTOMOTIVE TECHNICIAN May 03, 2023 15:23
== END 2023-05-03 13:00 | disposition home or self-care (01) ==
LOC: ENDO 09:52
PROVIDERS: ATTEND Surgery
DX: Z12.11 Encounter for screening for malignant neoplasm of colon (principal); K21.00 Gastro-esophageal reflux disease with esophagitis, without bleeding; D12.4 Benign neoplasm of descending colon; K62.1 Rectal polyp; K29.70 Gastritis, unspecified, without bleeding; K44.9 Diaphragmatic hernia without obstruction or gangrene; K57.30 Diverticulosis of large intestine without perforation or abscess without bleeding; K64.8 Other hemorrhoids; K31.89 Other diseases of stomach and duodenum; F17.210 Nicotine dependence, cigarettes, uncomplicated